=== PATIENT | female | born 1985 | race Asian ===

== ENCOUNTER 2018-07-24 03:12 | Emergency (ER) | payer MEDICAID ==
[~2018-07-24] VITALS: Ht 167.6 cm; Wt 61.2 kg
--- NOTE | 2018-07-24 03:20 | NUR ---
ED Nurse Note: patient ambulated to ED c/o abdominal since yesterday 2100 after eating sushi and drinking wine. Reports nausea and vomitting; denies diarrhea. AO4. NAD.
[2018-07-24 03:30] VITALS: BP 169/101
[2018-07-24] MEDS ORDERED: Dicyclomine HCl 10mg/5ml oral soln ORAL ONE (03:30)
[2018-07-24] MEDS ORDERED: Mylanta II UD 30ml ORAL ONE (03:30)
[2018-07-24] MEDS ORDERED: Lidocaine 2% Visc 15ml soln ORAL ONE (03:30)
[2018-07-24] MEDS ORDERED: Morphine Sulfate 4mg/ml Inj (IV USE ONLY) IVP ONE (03:30)
--- NOTE | 2018-07-24 03:45 | NUR ---
ED Nurse Note: IV access established. Blood collected; sent down to lab.
[2018-07-24 04:01] LABS: HEMATOCRIT 48.3 % (37.0-47.0); HEMOGLOBIN 16.4 G/DL (12.0-16.0); MEAN CORPUSCULAR VOLUME 96 FL (80-99); PLATELET COUNT 389 K/UL (150-450); RED BLOOD COUNT 5.02 M/UL (4.20-5.40); RED CELL DISTRIBUTION WIDTH 11.6 % (11.6-14.8); WHITE BLOOD COUNT 15.6 K/UL (4.8-10.8)
[2018-07-24 04:13] LABS: ANION GAP 17 mmol/L (5-15); BLOOD UREA NITROGEN 13 mg/dL (7-18); CALCIUM 10.1 MG/DL (8.5-10.1); CARBON DIOXIDE 24 MMOL/L (21-32); CHLORIDE 95 MMOL/L (98-107); CREATININE 1.1 MG/DL (0.55-1.30); POTASSIUM 5.5 MMOL/L (3.5-5.1); SODIUM 136 MMOL/L (136-145)
[2018-07-24 04:19] LABS: ALANINE AMINOTRANSFERASE 158 U/L (12-78); ALBUMIN 4.7 G/DL (3.4-5.0); ALKALINE PHOSPHATASE 109 U/L (46-116); ASPARTATE AMINO TRANSFERASE 184 U/L (15-37); BILIRUBIN,TOTAL 0.8 MG/DL (0.2-1.0)
--- NOTE | 2018-07-24 04:27 | Emergency Room Report ---
History of Present Illness General Chief Complaint: Abdominal Pain Source: Patient (Chalo Vazquez MD) Present Illness HPI 33-year-old female presents to ED for evaluation. Patient complaining of abdominal pain with vomiting. Started last night around 9 PM after eating sushi and drinking some wine. This had multiple episodes of vomiting with epigastric pain. Sharp, 7 out of 10, nonradiating. Denies fevers or chills. Denies chest pain or shortness of breath. Denies any diarrhea. No other aggravating relieving factors. Denies any other associated symptoms (Chalo Vazquez MD) Allergies: Coded Allergies: No Known Allergies (Unverified , 07/24/18) Patient History Past Medical History: none Past Surgical History: none Pertinent Family History: none Social History: Denies: smoking, alcohol use, drug use Last Menstrual Period: 07/20/2018 Now: No Immunizations: UTD Reviewed Nursing Documentation: PMH: Agreed; PSxH: Agreed (Chalo Vazquez MD) Nursing Documentation-PMH Past Medical History: No Stated History (Chalo Vazquez MD) Review of Systems All Other Systems: negative except mentioned in HPI (Chalo Vazquez MD) Physical Exam Vital Signs Date Time Temp Pulse Resp B/P (MAP) Pulse Ox O2 Delivery O2 Flow Rate FiO2 07/24/18 03:17 97.5 123 24 98 Room Air Sp02 EP Interpretation: reviewed, normal General Appearance: alert, GCS 15, non-toxic, mild distress Head: normocephalic, atraumatic Eyes: bilateral eye normal inspection, bilateral eye PERRL ENT: hearing grossly normal, normal pharynx, no angioedema, normal voice Neck: full range of motion, supple/symm/no masses Respiratory: chest non-tender, lungs clear, normal breath sounds, speaking full sentences Cardiovascular #1: regular rate, rhythm, no edema Cardiovascular #2: 2+ carotid (R), 2+ carotid (L), 2+ radial (R), 2+ radial (L) , 2+ dorsalis pedis (R), 2+ dorsalis pedis (L) Gastrointestinal: normal bowel sounds, soft, non-distended, no guarding, no rebound, tenderness Rectal: deferred Genitourinary: normal inspection, no CVA tenderness Musculoskeletal: back normal, gait/station normal, normal range of motion, non- tender Neurologic: alert, oriented x3, responsive, motor strength/tone normal, sensory intact, speech normal Psychiatric: judgement/insight normal, memory normal, mood/affect normal, no suicidal/homicidal ideation Reflexes: 3+ bicep (R), 3+ bicep (L), 3+ tricep (R), 3+ tricep (L), 3+ knee (R) , 3+ knee (L) Skin: normal color, no rash, warm/dry, well hydrated Lymphatic: no adenopathy (Chalo Vazquez MD) Medical Decision Making Diagnostic Impression: Primary Impression: Abdominal pain Additional Impressions: Gastroenteritis Hepatitis Leukocytosis ER Course Patient presents to the emergency department today complaining of abdominal pain. Differential considerations include acute pancreatitis, cholecystitis, gastritis, hepatitis, appendicitis just to name a few. Case was signed out to me for final disposition. Patient's laboratory workup shows an elevated white blood cell count and elevated liver enzymes. This could be secondary to stress reaction as well as hepatitis and gastroenteritis as well as cholecystitis. Patient had a CT scan of the abdomen and pelvis which was negative except for some small dilated bowel loops which could be secondary to gastroenteritis. Patient did not have any prior history of surgeries therefore bowel obstruction risk was low. Patient was reevaluated with a benign abdominal exam feeling much better requesting to be discharged and able to tolerate by mouth fluids. Patient was given prescription for Zofran. Recommend close follow-up. Patient' s laboratory results were reviewed closely with her.Patient is advised to follow up with primary doctor in 2-3 days and return the emergency room for any worsening symptoms and as needed. Labs Test 07/24/18 03:45 07/24/18 04:28 07/24/18 05:30 White Blood Count 15.6 K/UL (4.8-10.8) Red Blood Count 5.02 M/UL (4.20-5.40) Hemoglobin 16.4 G/DL (12.0-16.0) Hematocrit 48.3 % (37.0-47.0) Mean Corpuscular Volume 96 FL (80-99) Mean Corpuscular Hemoglobin 32.6 PG (27.0-31.0) Mean Corpuscular Hemoglobin Concent 33.9 G/DL (32.0-36.0) Red Cell Distribution Width 11.6 % (11.6-14.8) Platelet Count 389 K/UL (150-450) Mean Platelet Volume 6.2 FL (6.5-10.1) Neutrophils (%) (Auto) % (45.0-75.0) Lymphocytes (%) (Auto) % (20.0-45.0) Monocytes (%) (Auto) % (1.0-10.0) Eosinophils (%) (Auto) % (0.0-3.0) Basophils (%) (Auto) % (0.0-2.0) Sodium Level 136 MMOL/L (136-145) Potassium Level 5.5 MMOL/L (3.5-5.1) Chloride Level 95 MMOL/L (98-107) Carbon Dioxide Level 24 MMOL/L (21-32) Anion Gap 17 mmol/L (5-15) Blood Urea Nitrogen 13 mg/dL (7-18) Creatinine 1.1 MG/DL (0.55-1.30) Estimat Glomerular Filtration Rate 57.6 mL/min (>60) Glucose Level 171 MG/DL (74-106) Calcium Level 10.1 MG/DL (8.5-10.1) Total Bilirubin 0.8 MG/DL (0.2-1.0) Aspartate Amino Transf (AST/SGOT) 184 U/L (15-37) Alanine Aminotransferase (ALT/SGPT) 158 U/L (12-78) Alkaline Phosphatase 109 U/L (46-116) Total Protein 9.3 G/DL (6.4-8.2) Albumin 4.7 G/DL (3.4-5.0) Globulin 4.6 g/dL Albumin/Globulin Ratio 1.0 (1.0-2.7) Lipase 67 U/L (73-393) Human Chorionic Gonadotropin, Qual Negative (NEGATIVE) Urine Color Yellow Urine Appearance Clear Urine pH 6 (4.5-8.0) Urine Specific [place] 1.020 (1.005-1.035) Urine Protein 2+ (NEGATIVE) Urine Glucose (UA) Negative (NEGATIVE) Urine Ketones 2+ (NEGATIVE) Urine Blood Negative (NEGATIVE) Urine Nitrite Negative (NEGATIVE) Urine Bilirubin Negative (NEGATIVE) Urine Urobilinogen Normal MG/DL (0.0-1.0) Urine Leukocyte Esterase 1+ (NEGATIVE) Urine RBC 0-2 /HPF (0 - 2) Urine WBC 0-2 /HPF (0 - 2) Urine Squamous Epithelial Cells Many /LPF (NONE/OCC) Urine Bacteria Few /HPF (NONE) Urine HCG, Qualitative Negative (NEGATIVE) (Eulalio Rivers MD) CT/MRI/US Diagnostic Results CT/MRI/US Diagnostic Results : Imaging Test Ordered: CT abdomen and pelvis: Positive for fluid in some small bowel (Eulalio Rivers MD) Last Vital Signs Date Time Temp Pulse Resp B/P (MAP) Pulse Ox O2 Delivery O2 Flow Rate FiO2 07/24/18 04:07 97.6 07/24/18 03:17 123 24 98 Room Air (Chalo Vazquez MD) Status: improved (Eulalio Rivers MD) Disposition: HOME, SELF-CARE Condition: Stable Scripts Ondansetron (Zofran) 4 Mg Tablet 4 MG ORAL Q6H PRN for Nausea & Vomiting, #10 TAB 0 Refills Prov: Eulalio Rivers MD 07/24/18 Referrals: NOT CHOSEN IPA/,REFERRING (PCP) Chalo Vazquez MD Jul 24, 2018 04:26 Eulalio Rivers MD Jul 24, 2018 07:03
[2018-07-24] MEDS ORDERED: Isovue-300 100ml vial INJ PRN (04:30)
[2018-07-24] MEDS ORDERED: Ketorolac 30mg Inj IV ONE (05:00)
--- NOTE | 2018-07-24 05:10 | NUR ---
ED Nurse Note: Unable to scan toradol IV barcode. Documented admin on eMAR. Administered to patient.
[2018-07-24 05:41] LABS: APPEARANCE,URINE CLEAR; BILIRUBIN, URINE NEGATIVE (NEGATIVE); GLUCOSE, URINE (UA) NEGATIVE (NEGATIVE); KETONES,URINE 2+ (NEGATIVE); LEUKOCYTE ESTERASE ,URINE 1+ (NEGATIVE); NITRITE,URINE NEGATIVE (NEGATIVE); PH,URINE 6 (4.5-8.0); PROTEIN,URINE 2+ (NEGATIVE); UROBILINOGEN,URINE NORMAL MG/DL (0.0-1.0)
[2018-07-24 05:49] LABS: COLOR,URINE YELLOW
[2018-07-24] MEDS ORDERED: ZOFRAN4 MG ORAL (06:57)
[2018-07-24 07:04] VITALS: BP 138/81
[2018-07-24 07:05] VITALS: BP 138/81
--- NOTE | 2018-07-24 07:06 | NUR ---
ER DISCHARGE NOTE: Patient is cleared to be discharged per ERMD, pt is aox4, on room air, with stable vital signs. pt was given dc and prescription instructions, pt was able to verbalize understanding, pt id band and iv site removed without complications. pt is able to ambulate with steady gait. pt took all belongings.
--- NOTE | 2018-07-24 10:25 | Diagnostic Imaging Report ---
Clinical Indication: Abdominal pain for one Technique: No oral contrast utilized, per emergency room physician request IV administration nonionic contrast. Venous phase spiral acquisition obtained through the abdomen and pelvis. Multiplanar reconstructions were generated. Total dose length product 577.07 mGycm. CTDIvol(s) 10.55 mGy. Dose reduction achieved using automated exposure control Comparison: none Findings: The appendix is normal. There is diffuse distention of the distal ileum, which also involves the terminal ileum, with mild wall thickening. The proximal small bowel is not distended, and there is a fairly short transition from normal caliber proximal small bowel to the dilated distal small bowel. There is a focal segmental nondilated segment in the left lower quadrant, and another in the light lower quadrant at the level the proximal terminal ileum. The distal esophagus, stomach, duodenum are unremarkable. There is inflammation of the lower abdominal small bowel mesentery. A small to moderate amount of free fluid is seen within the pelvis and mesenteric root. There is no evidence of diverticulosis or diverticulitis. The proximal mesenteric arteries appear to be patent, as do the mesenteric veins. The liver is mildly enlarged, is diffusely hypoattenuating. The gallbladder, bile ducts, pancreas, spleen, adrenals, kidneys are unremarkable. There are 2 tiny accessory splenules incidentally noted. No pelvic mass or adenopathy. Normal uterus and ovaries. No retroperitoneal mass or adenopathy. The included lung bases are clear. The bones are unremarkable. Impression: Dilated ileum, extending to the terminal ileum, with mild wall thickening, small bowel feces indicating stasis of contents. Findings are most likely on the basis of ileitis, either infectious or noninfectious inflammatory. Ischemic etiology much less likely, but also possible. No definite obstructive pathology, given extension of the process to the ileocecal valve, although the presence of 2 short nondistended segments does raise the possibility of small bowel obstruction Inflammatory changes of the pelvic mesentery, small moderate amount of free pelvic fluid, likely related to the above Mildly enlarged fatty liver This agrees with the preliminary interpretation provided overnight by [facility] service. The CT scanner at [facility] is accredited by the [employer] and the scans are performed using protocols designed to limit radiation exposure to as low as reasonably achievable to attain images of sufficient resolution adequate for diagnostic evaluation.
== END 2018-07-24 07:06 | disposition home or self-care (01) ==
LOC: EMR 03:33
DX: K52.9 Noninfective gastroenteritis and colitis, unspecified (principal); K75.9 Inflammatory liver disease, unspecified; D72.829 Elevated white blood cell count, unspecified
CPT/HCPCS: 36415; 74177; 80053; 81003; 81025; 83690; 84703; 85025; 96361; 96374; 96375; 99284; J1885; J1956; J2270; J2405; Q9967; S0028